=== PATIENT | female | born 2000 | race Caucasian/White ===

== ENCOUNTER 2021-08-01 22:07 | Emergency (ER) | payer BC ==
[2021-08-02] MEDS ORDERED: Ondansetron ODT 4 MG TAB ONE (00:01)
== END 2021-08-02 00:33 | disposition home or self-care (01) ==
LOC: CSHERS 22:07
DX: U07.1 COVID-19 (principal); Z79.899 Other long term (current) drug therapy; D50.9 Iron deficiency anemia, unspecified
CPT/HCPCS: 99283; Q0162